=== PATIENT | female | born 1940 | race Caucasian/White ===

== ENCOUNTER 2023-05-08 10:29 | Outpatient (OUT) | payer MEDICARE, SELFPAY ==
--- NOTE | 2023-05-08 | MR_ITS ---
[address] [address] Patient Name: MONICA CALVIN MRN: [facility]:[id number] date: 1940 Sex: F Assigned Patient Location: MRI Current Patient Location: MRI Accession/Order Number: [id number] Exam Date: 05/08/2023 10:55 Report Date: 05/08/2023 13:19 At the request of: NON-STAFF PHYSICIAN Procedure: MR lumbar spine wo con EXAMINATION: MR lumbar spine wo con HISTORY: Impaired Functional Mobility Z74.09, Chronic Low Back Pain COMPARISON: 09/10/2012 TECHNIQUE: A variety of imaging planes and parameters were utilized for visualization of suspected pathology. FINDINGS: For the purposes of numbering, sagittal T2 image # 8 extends from the T9 vertebral body superiorly to the S3 level inferiorly. PARASPINAL AREA: Normal with no visible mass. BONES: Normal alignment with no spondylolisthesis. 70% anterior wedge compression fracture of the L4 vertebral body with heterogeneous signal including increased STIR signal likely representing an acute compression fracture. Chronic compression fracture involving the mid superior and inferior endplates of L2. Area of signal abnormality inferior endplate of the T12 vertebral body with increased or signal likely representing an acute injury CORD/CAUDA EQUINA: Normal caliber, contour, and signal intensity. DISC LEVELS: 12-L1: No significant disc/facet abnormality, spinal stenosis, or foraminal stenosis. L1-L2: Disc desiccation. Mild posterior disc/osteophyte complex and ligamentum flavum hypertrophy and facet osteoarthropathy. No central or foraminal stenosis L2-L3: Disc desiccation. Mild posterior disc/osteophyte complex and ligamentum flavum hypertrophy and facet osteoarthropathy. No central or foraminal stenosis L3-L4: Early degenerative disc disease is present without focal protrusion or neural impingement. L4-L5: Disc space narrowing. Mild diffuse disc/osteophyte complex. Severe ligamentum flavum hypertrophy and facet osteoarthropathy. Moderate narrowing of the central canal, axial image 19. Moderate bilateral foraminal stenosis L5-S1: Moderate degenerative disc disease is present without visible neural impingement. MR/MR lumbar spine wo con IMPRESSION: 70% acute anterior wedge compression fracture of the L4 vertebral body Bone edema suggesting acute compression fracture inferior endplate of the T12 vertebral body Degenerative changes resulting in central and foraminal stenosis at L4-L5 Electronically authenticated by: JAIME GUARDADO Date: 05/08/2023 13:19
== END 2023-05-08 10:30 | disposition home or self-care (01) ==
LOC: MRI 10:34
DX: M54.42 Lumbago with sciatica, left side (principal); M54.41 Lumbago with sciatica, right side; G89.29 Other chronic pain; Z74.09 Other reduced mobility
CPT/HCPCS: 72148